=== PATIENT | female | born 2000 | race Caucasian/White ===

== ENCOUNTER 2024-10-05 18:23 | Emergency (ER) | payer BC ==
[2024-10-05 19:43] LABS: BASOPHILS ABSOLUTE AUTO 0.06 K/uL (0.00-0.10); BASOPHILS PERCENT AUTO 0.8 % (0.1-1.3); EOSINOPHILS ABSOLUTE AUTO 0.11 K/uL (0.00-0.40); EOSINOPHILS PERCENT AUTO 1.4 % (0.0-5.4); IMMATURE GRAN PERCENT AUTO 0.1 % (0.0-0.7); LYMPHOCYTES ABSOLUTE AUTO 2.78 K/uL (0.8-3.3); LYMPHOCYTES PERCENT AUTO 35.7 % (11.4-47.7); MONOCYTES ABSOLUTE AUTO 0.56 K/uL (0.20-0.90); MONOCYTES PERCENT AUTO 7.2 % (3.3-12.6); NEUTROPHILS ABSOLUTE AUTO 4.27 K/uL (1.0-7.6); NEUTROPHILS PERCENT AUTO 54.8 % (40.0-78.1); PLATELET COUNT,PLT 265 K/uL (130-375); RED BLOOD CELL COUNT 4.86 M/uL (3.77-5.24); WHITE BLOOD CELL COUNT,WBC 7.8 K/uL (3.2-11.0)
[2024-10-05 19:45] LABS: IMMATURE GRAN ABSOLUTE AUTO 0.01 K/uL (0.00-0.23)
[2024-10-05 20:01] LABS: INR 1.0
== END 2024-10-05 20:54 | disposition home or self-care (01) ==
LOC: JP.ED 18:23
DX: K64.4 Residual hemorrhoidal skin tags (principal); Z88.0 Allergy status to penicillin; Z79.01 Long term (current) use of anticoagulants; Z79.899 Other long term (current) drug therapy
CPT/HCPCS: 36415; 82272; 84703; 85025; 85610; 99283